=== PATIENT | female | born 1970 | race Caucasian/White ===

== ENCOUNTER 2020-09-01 10:22 | Outpatient (CLI) | payer OTHER ==
--- NOTE | 2020-09-01 11:45 | MRI Report ---
PROCEDURE: Shoulder LT W/O INDICATIONS: PAIN IN LEFT SHOULDER TECHNIQUE: Noncontrast oblique coronal T2 fast spin echo with fat saturation, oblique sagittal T1 spin echo and T2 fast spin echo with fat saturation, axial T1 spin echo and T2 fast spin echo with fat saturation t hrough the shoulder. COMPARISON: None. FINDINGS: Image quality: Excellent. Rotator cuff: Mild T2 signal elevation throughout the supraspinatus tendon at the humeral insertion site, indicating tendinopathy. Superimposed low-grade partial-thickness tearing of the anterior supra spinatus tendon at the humeral insertion site. The supraspinatus, infraspinatus, and subscapularis te ndons otherwise appear intact throughout. No rotator cuff muscle atrophy on sagittal images. Bones and bursae: No bone marrow contusions or fractures. Moderate acromioclavicular joint degenerat ion. The acromion demonstrates conventional anatomy, without an os acromiale. No pathologic subacro mial/subdeltoid bursal fluid is present. Capsule and soft tissues: There is undercutting of the posterior inferior labrum. The long head of th e biceps tendon demonstrates normal location and morphology. The rotator interval appears normal, wi thout fibrosis. The coracohumeral ligament is normal in thickness. IMPRESSION: 1. Supraspinatus tendinopathy with superimposed low-grade partial-thickness tearing. No full-thicknes s rotator cuff tear. 2. Acromioclavicular joint osteoarthritis. 3. Glenoid labral tear. Reviewed by: Sung Sheffield MD on 09/01/2020 11:44 AM PDT Approved by: Sung Sheffield MD on 09/01/2020 11:44 AM PDT Station ID: [id number]
== END 2020-09-01 10:23 | disposition home or self-care (01) ==
LOC: DI 10:22
PROVIDERS: ATTEND Student in an Organized Health Care Education/Training Program
DX: S46.012A Strain of muscle(s) and tendon(s) of the rotator cuff of left shoulder, initial encounter (principal); M19.012 Primary osteoarthritis, left shoulder; S43.492A Other sprain of left shoulder joint, initial encounter